=== PATIENT | male | born 1975 ===

== ENCOUNTER 2021-03-25 07:54 | Emergency (ER) | payer MEDICAID ==
[~2021-03-25] VITALS: Ht 182.9 cm; Wt 86.2 kg
[2021-03-25 08:00] VITALS: BP 152/83
[2021-03-25] MEDS ORDERED: LIDOCAINE 1% HCL (LOCAL ANESTH.) INJ 20ML MDV ONE (09:34)
[2021-03-25] MEDS ORDERED: cefTRIAXone SOD 1,000 MG VL IM ONE (10:00)
== END 2021-03-25 10:15 | disposition home or self-care (01) ==
LOC: ER 07:54
DX: L02.412 Cutaneous abscess of left axilla (principal)
CPT/HCPCS: 10060; 96372; 99283; J0696; J2001